=== PATIENT | female | born 1950 | race Caucasian/White ===

== ENCOUNTER → 2017-01-31 | Outpatient (CLI) | payer BC ==
--- NOTE | 2017-01-31 18:38 | EKG ---
Date Performed: 01/31/2017 Time Performed: 12:31:51 PTAGE: 66 years EKG: Sinus rhythm LOW QRS VOLTAGE IN PRECORDIAL LEADS BORDERLINE ECG No significant change from prior electrocardiogra m. NO PREVIOUS TRACING DOCTOR: Ervin Burt Interpretating Date/Time 01/31/2017 18:37:39
== END ==
LOC: HCAV 09:34
PROVIDERS: ATTEND Orthopaedic Surgery Orthopaedic Trauma
DX: Z01.810 Encounter for preprocedural cardiovascular examination (principal)
CPT/HCPCS: 93005

== ENCOUNTER → 2017-09-08 | Outpatient (CLI) | payer BC ==
[~2017-09-08] MED LIST: DIAZ5 PO; DIOV160T3 PO; HYDR-3366 PO; HYDR-3583 PO; HYDR-4204 TOPICAL; HYDR25TA5 PO; LABE100T2 PO; TRAM50TA PO; VITA1000 PO; WALKER/ADULT/FO1 MIS; XARE10TA PO
== END ==
LOC: CPRE 09:49
PROVIDERS: ATTEND Orthopaedic Surgery Orthopaedic Trauma
DX: M79.609 Pain in unspecified limb (principal)

== ENCOUNTER 2017-09-23 05:32 | Inpatient (IN) | payer BC ==
[~2017-09-23] VITALS: Ht 160 cm; Wt 55.2 kg
[2017-09-23] MEDS ORDERED: ceFAZolin 2 GM PREMIX 50 ML IV SCH (06:15)
[2017-09-23] MEDS ORDERED: VANCOMYCIN 1000 MG/NS 250 ML (for <70 kg) IV SCH ×2 (06:15)
[2017-09-23] MEDS ORDERED: FAMOTIDINE 20 MG/2 ML VIAL IV PUSH ONE (06:15)
[2017-09-23] MEDS ORDERED: ACETAMINOPHEN 1000 MG/100 ML 100 ML IV ONE (06:15)
[2017-09-23] MEDS ORDERED: CELECOXIB 200 MG CAP PO ONE (06:15)
[2017-09-23] MEDS ORDERED: GABAPENTIN 300 MG CAP PO ONE (06:15)
[2017-09-23] MEDS ORDERED: SODIUM CHLORID 0.9% 500 ML IV PRN (06:15)
[2017-09-23] MEDS ORDERED: TRANEXAMIC ACID IV SCH (06:15)
[2017-09-23] MEDS ORDERED: METOPROLOL TARTRATE 25 MG TAB PO PRN (06:15)
[2017-09-23] MEDS ORDERED: POVIDONE IODINE 5% (ANTISEPSIS KIT) 4 APPLICATIONS EACH NARE PRN (06:15)
[2017-09-23] MEDS ORDERED: LACTATED RINGER'S 1000 ML IV PRN (06:15)
[2017-09-23] MEDS ORDERED: DEXAMETHASONE SOD PHOS 20 MG/5 ML VIAL IV PUSH ONE (06:15)
[2017-09-23] MEDS ORDERED: BUPIVACAINE-EPI PF 0.25% INJ 20 ML, BUPIVACAINE LIPOSO PF 1.3% INJ 20 ML in SODIUM CHLO... P-ARTICULR SCH (06:15)
[2017-09-23] MEDS ORDERED: GENTAMICIN SULFATE 80 MG/2 ML VIAL ONE (06:15)
[2017-09-23] MEDS ORDERED: CHLORHEXIDINE GLUCONATE 4% SOLN 120 ML BTL TOPICAL SCH (06:15)
[2017-09-23] MEDS ORDERED: SODIUM CHLORIDE 0.9% IV SCH (06:15)
[2017-09-23] MEDS ORDERED: ONDANSETRON HCL 4 MG/2 ML VIAL IV PUSH ONE (06:15)
[2017-09-23] MEDS ORDERED: CHLORHEXIDINE GLUCONATE 2 % 1 PACK (2 CLOTHS) TOPICAL PRN (06:15)
[2017-09-23] MEDS ORDERED: VANCOMYCIN 1 GM/200 ML INJ 200 ML IV ONE (06:26)
[2017-09-23] MEDS ORDERED: ACETAMINOPHEN/HYDROcodone 325 MG/5 MG TAB PO PRN (09:00)
[2017-09-23] MEDS ORDERED: ACETAMINOPHEN/HYDROcodone 325 MG/7.5 MG TAB PO PRN (09:00)
[2017-09-23] MEDS ORDERED: ONDANSETRON HCL 4 MG/2 ML VIAL IVP PRN (09:00)
[2017-09-23] MEDS ORDERED: NALOXONE HCL 0.4 MG/ML AMP IV PUSH PRN (09:00)
[2017-09-23] MEDS ORDERED: Post-op Orders (for Pharmacy) XX ONE (09:00)
--- NOTE | 2017-09-23 09:02 | PD.OP ---
cc: Cosme Longoria MD Operative Report Date of Surgery: September 23, 2017 Preoperative Diagnosis: Severe right hip osteoarthritis Postoperative Diagnosis: Procedure: Right total hip arthroplasty by anterior approach Surgeon: Cosme Longoria Wardrobe Mistress(s): ALAINA Lizaam PA-C The surgical procedure was assisted by my physician housing assistant property manager. My P.A. presence was necessary throughout this case for the manipulation and positioning of the surgical extremity. My P.A. was assisting me throughout the duration of this procedure. The skill set of a physician housing assistant property manager was medically necessary to complete this procedure. During the surgical case the surgical aides teacher was working at the back table and the physician housing assistant property manager was directly assisting me. Operation and Findings: PLAN OF ACTIVITY Weight bear as tolerated. IMPLANTS USED DePuy Corail size 9 collared stem with a size [50] Blue River Gription cup, [50/32 ] Altrx poly liner, and a [32+1] ceramic Biolox ceramic head. DETAILS OF PROCEDURE: This patient has a long history of hip pain. Patient was found to have severe osteoarthritis. The patient had radiographic evidence of joint space narrowing with [id number] arthritis and osteophytes around the acetabulum as well as the femoral head. There was also some cystic changes. The patient failed conservative treatment with pain medications, anti-inflammatories, physical therapy, assistive devices including a cane, as well as therapeutic injection of the hip. Patient's hip arthritis was limiting his ability to ambulate and perform activities of daily living. The patient wished to proceed with surgery and informed consent was obtained. Operative site was marked. I discussed both posterior approach and anterior approach with the patient and decision was made for anterior approach. Patient was brought to OR and placed on OR table. IV sedation and general anesthesia was administered by anesthesiologist. Patient positioned on a Lissa table and was given IV antibiotics. Time-out procedure was performed. The hip and thigh were prepped with alcohol followed by Hibiclens. The thigh was draped in the usual sterile fashion. Clean Air Suite was used for this procedure. The procedure began with a 5-inch incision over the anterolateral thigh. Subcutaneous tissue was dissected with Bovie. The fascia over the tensa fasciae latae was incised. Care was taken to avoid injury to the lateral femoral cutaneous nerve. The tensor muscle was retracted laterally. Sartorius was retracted medially. Retractors were now placed. The reflected head of the rectus is now elevated. A capsulotomy was performed over the anterior head capsule. Sutures were placed to help retract the capsule. At this point the femoral head and neck were identified. With soft tissue protected, oscillating saw was used to make a cut through the femoral neck, the femoral head was now removed. At this point attention was turned to preparation of the acetabulum. The labrum was excised. The acetabulum was sequentially reamed up to size [50]. A Blue River cup was now placed. Fluoroscopy was used to aid in identification of appropriate version. Cup was fully impacted and found to have excellent fit. Hole eliminator was now placed. The liner was now impacted into the cup. At this point the hip was externally rotated. A hook was placed around the proximal femur. The capsule was released off the lateral and medial femur. The hip was now extended and adducted. Retractors were placed around the proximal femur to allow for exposure. A box osteotome was used to remove the lateral cortex of the femoral neck. A broach was used to help lateralize the prosthesis. Canal finder was used to create a path down the canal. Next, the canal was sequentially broached up to size [9]. This was found to be an excellent fit. Calcar planer was placed. A standard head was placed, and the hip was reduced. The hip was found to have excellent stability with good range of motion. The leg lengths were measured under fluoroscopy and found to be equal compared to preoperatively. Trial broach was removed. The Corail stem was opened. Stem was fully impacted into the proximal femur in appropriate version. The femoral head was placed. The hip was again reduced. Fluoroscopy confirmed excellent alignment of prosthesis. The wound was thoroughly irrigated and capsule was closed with #1 Vicryl. The fascia over the tensor fasciae muscle was closed with #1 Vicryl, subcutaneous tissue was closed with 3-0 Vicryl and the skin was closed with jalil and Dermabond skin closure. The capsule layers, muscle, and subcutaneous tissue were injected with a mixture of saline and bupivicaine. Dressings were applied. The patient was transferred to Recovery Room in stable condition. Cosme Longoria MD September 23, 2017 09:02
[2017-09-23] MEDS ORDERED: DIAZEPAM 5 MG TAB PO PRN (09:15)
--- NOTE | 2017-09-23 09:16 | RADRPT ---
EXAM DATE/TIME: 09/23/2017 06:27 [facility] COMPARISON: No previous studies available for comparison. INDICATIONS : Right total hip arthroplasty. MEDICAL HISTORY : Unobtainable. SURGICAL HISTORY : Unobtainable. ENCOUNTER: Initial ACUITY: 1 day PAIN SCORE: Non-responsive. LOCATION: Right hip FINDINGS: A two view examination of the right hip was performed. Right total hip arthroplasty. Femoral and acet abular components are appropriately positioned. No fracture. CONCLUSION: Appropriate postoperative appearance of the right hip status post total arthroplasty Geoff Lockhart MD on September 23, 2017 at 9:13 Board Certified Radiologist. This report was verified electronically.
[2017-09-23] MEDS ORDERED: *MEPERIDINE 25 MG INJ VIAL PERIprocedural Use ONLY ONE (09:29)
[2017-09-23] MEDS ORDERED: MIDAZOLAM HCL 2 MG/2 ML VIAL ONE (09:30)
[2017-09-23] MEDS ORDERED: TRANEXAMIC ACID INJ 1,000 MG in SODIUM CHLORIDE 0.9% INJ 100 ML IV ONE (09:30)
[2017-09-23] MEDS ORDERED: *morphine SULFATE 8 MG/ML PERIprocedure ONLY ONE ×2 (09:37→09:47)
[2017-09-23] MEDS ORDERED: DO NOT ADM ANY ANTICOAGULANT DRUGS PRN (10:00)
--- NOTE | 2017-09-23 10:41 | RADRPT ---
EXAM DATE/TIME: 09/23/2017 10:39 [facility] COMPARISON: No previous studies available for comparison. INDICATIONS : Post op right hip surgery. MEDICAL HISTORY : None. SURGICAL HISTORY : None. ENCOUNTER: Initial ACUITY: 1 day PAIN SCORE: 0/10 LOCATION: Right Hip and pelvis. FINDINGS: A lateral view of the right hip with AP pelvis was obtained. Bilateral total hip arthroplasties. On t he right, regional air suggesting recent intervention. Femoral and acetabular components are all appr opriately positioned without fracture or dislocation. CONCLUSION: Bilateral total hip arthroplasties are radiographically intact without dislocation or fracture. Geoff Lockhart MD on September 23, 2017 at 10:38 Board Certified Radiologist. This report was verified electronically.
[2017-09-23 10:44] VITALS: BP 172/79; PULSE 86; RESP 18; TEMP 97.7; O2SAT 100
[2017-09-23] MEDS: KETOROLAC TROMETHAMINE 30 MG/ML (IVP) VIAL IV PUSH SCH ×2 (10:59→23:53)
[2017-09-23] MEDS: LACTATED RINGER'S 1000 ML INJ 1,000 ML IV SCH (11:21)
[2017-09-23] MEDS: ACETAMINOPHEN/HYDROcodone 325 MG/10 MG TAB PO PRN ×3 (11:44→18:44)
[2017-09-23] MEDS: MORPHINE SULFATE 4 MG/ML INJ IV PUSH PRN ×2 (13:00→20:58)
[2017-09-23] MEDS: CEFAZOLIN INJ 2,000 MG in SODIUM CHLORIDE 0.9% INJ 100 ML IV SCH ×2 (15:10→20:58)
[2017-09-23] MEDS ORDERED: ENALAPRILAT 1.25 MG/ML VIAL IV PUSH PRN (15:30)
--- NOTE | 2017-09-23 15:32 | PD.CONS ---
HPI Service [facility] Hospitalists Consult Requested By Dr. Singh Reason for Consult Management of hypertension Primary Care Physician Diagnoses: (1) Osteoarthritis (2) Hypertension History of Present Illness The patient is a 66-year-old female seen following right total hip arthroplasty. Hospitalist consultation was requested for management of hypertension. Patient denies any other chronic medical problems. States that her blood pressures usually well controlled. She denies chest pain or dyspnea. Pain is well controlled at this time. Review of Systems Constitutional: DENIES: Fever, Chills, Night Sweats Eyes: DENIES: Blurred vision, Vision loss Ears, nose, mouth, throat: DENIES: Hearing loss Respiratory: DENIES: Cough, Wheezing, Sputum production, Shortness of breath Cardiovascular: DENIES: Chest pain, Palpitations, Dyspnea on Exertion, Lower Extremity Edema Gastrointestinal: DENIES: Abdominal pain, Constipation, Diarrhea, Nausea, Vomiting Genitourinary: DENIES: Urinary frequency, Urinary incontinence, Urgency, Hematuria, Dysuria, Nocturia Musculoskeletal: COMPLAINS OF: Joint pain, DENIES: Muscle aches Integumentary: DENIES: Pruritus, Rash Hematologic/lymphatic: DENIES: Bruising Neurologic: DENIES: Headache Past Family Social History Allergies: Coded Allergies: No Known Allergies (Unverified Allergy, 09/23/17) Past Medical History Hypertension Past Surgical History Left total hip arthroplasty 2016 Reported Medications Labetalol 100 mg twice daily Diovan HCT 160/12.5 daily [place] 10/325 as needed Tramadol as needed Valium 5 mg 3 times daily as needed HCTZ 25 mg daily Hydrocortisone cream as needed Vitamin D Family History Insulin-dependent diabetes Social History Denies alcohol, tobacco, or illicit drug use. Physical Exam Vital Signs Vital Signs Date Time Temp Pulse Resp B/P (MAP) Pulse Ox O2 Delivery O2 Flow Rate FiO2 09/23/17 10:44 97.7 86 18 172/79 (110) 100 09/23/17 10:20 16 09/23/17 10:15 97.8 78 16 150/71 (97) 98 Nasal Cannula 2 09/23/17 10:00 79 16 153/72 (99) 97 Nasal Cannula 2 09/23/17 09:52 15 09/23/17 09:45 85 16 156/70 (98) 96 Nasal Cannula 2 09/23/17 09:42 15 09/23/17 09:30 88 15 157/70 (99) 100 Nasal Cannula 3 09/23/17 09:25 98.1 90 15 159/75 (103) 100 Nasal Cannula 4 09/23/17 06:26 98.3 88 20 193/87 (122) 98 Physical Exam GENERAL: Well-nourished, well-developed female in no acute distress. Sitting up in a chair. HEENT: Normocephalic, atraumatic. Pupils equal, round and reactive. Extraocular movements intact. No scleral icterus. No injection or drainage. Oropharynx is clear. Mucous membranes are moist. CARDIOVASCULAR: Regular rate and rhythm without murmurs, gallops, or rubs. RESPIRATORY: Clear to auscultation. No wheezes, rales, or rhonchi. Breathing is non-labored. GASTROINTESTINAL: Abdomen soft, non-tender, nondistended. EXTREMITIES: No lower extremity edema. No calf tenderness. SCDs. PSYCH: Alert and oriented x 3. Imaging Last Impressions Hip and Pelvis X-Ray 09/23/17 0858 Signed Impressions: Service Date/Time: Saturday, September 23, 2017 10:39 - CONCLUSION: Bilateral total hip arthroplasties are radiographically intact without dislocation or fracture. Geoff Lockhart MD Hip X-Ray 09/23/17 0000 Signed Impressions: Service Date/Time: Saturday, September 23, 2017 06:27 - CONCLUSION: Appropriate postoperative appearance of the right hip status post total arthroplasty Geoff Lockhart MD Assessment and Plan Assessment and Plan 1. Osteoarthritis, right hip: Status post right total hip arthroplasty. Management per orthopedic surgery. Continue pain control, physical therapy, bowel regimen. 2. Hypertension: Blood pressure has been elevated, likely secondary to pain. Continue pain control. Continue ARB, HCTZ, labetalol. Vasotec as needed. 3. DVT prophylaxis: Xarelto. Andre Reyes MD September 23, 2017 15:32
[2017-09-23 16:15] VITALS: BP 151/75; PULSE 99; RESP 18; TEMP 97.9; O2SAT 100
[2017-09-23] MEDS: ACETAMINOPHEN 1000 MG/100 ML 100 ML IV SCH (17:43)
[2017-09-23] MEDS: VANCOMYCIN INJ 1,000 MG in SODIUM CHLOR 0.9% 250 ML INJ 250 ML IV SCH (18:23)
[2017-09-23 20:00] VITALS: BP 167/77; PULSE 103; RESP 18; TEMP 98; O2SAT 97
[2017-09-23] MEDS: ASPIRIN 81 MG CHEW TAB CHEW SCH (20:50)
[2017-09-23] MEDS: CELECOXIB 200 MG CAP PO SCH (20:50)
[2017-09-23] MEDS: LABETALOL HCL 100 MG TAB PO SCH (20:50)
[2017-09-24] VITALS: BP 108/52; PULSE 93; RESP 18; TEMP 98.2; O2SAT 99
[2017-09-24] MEDS: CEFAZOLIN INJ 2,000 MG in SODIUM CHLORIDE 0.9% INJ 100 ML IV SCH (01:47)
[2017-09-24] MEDS: ACETAMINOPHEN/HYDROcodone 325 MG/10 MG TAB PO PRN ×3 (01:52→11:05)
[2017-09-24] MEDS: LACTATED RINGER'S 1000 ML INJ 1,000 ML IV SCH ×2 (01:53→12:00)
[2017-09-24] MEDS: MORPHINE SULFATE 4 MG/ML INJ IV PUSH PRN (03:51)
[2017-09-24 04:00] VITALS: BP 151/73; PULSE 100; RESP 18; TEMP 98.4; O2SAT 99
[2017-09-24] MEDS: VANCOMYCIN INJ 1,000 MG in SODIUM CHLOR 0.9% 250 ML INJ 250 ML IV SCH (06:07)
--- NOTE | 2017-09-24 06:35 | PD.ORT.PN ---
Subjective Subjective Remarks POD 1 s/p Right Anterior LUIS doing well. out of bed yesterday with walker. pain controlled. states feels ready to go home today Objective Vitals Vital Signs Date Time Temp Pulse Resp B/P (MAP) Pulse Ox O2 Delivery O2 Flow Rate FiO2 09/24/17 04:00 98.4 100 18 151/73 (99) 99 09/24/17 03:56 18 09/24/17 00:00 98.2 93 18 108/52 (70) 99 09/23/17 20:00 98.0 103 18 167/77 (107) 97 09/23/17 16:15 97.9 99 18 151/75 (100) 100 09/23/17 10:44 97.7 86 18 172/79 (110) 100 09/23/17 10:20 16 09/23/17 10:15 97.8 78 16 150/71 (97) 98 Nasal Cannula 2 09/23/17 10:00 79 16 153/72 (99) 97 Nasal Cannula 2 09/23/17 09:52 15 09/23/17 09:45 85 16 156/70 (98) 96 Nasal Cannula 2 09/23/17 09:42 15 09/23/17 09:30 88 15 157/70 (99) 100 Nasal Cannula 3 09/23/17 09:25 98.1 90 15 159/75 (103) 100 Nasal Cannula 4 I/O 09/23/17 09/23/17 09/23/17 09/24/17 09/24/17 09/24/17 07:00 15:00 23:00 07:00 15:00 23:00 Intake Total 3110 ml 940 ml 240 ml Output Total 200 ml Balance 2910 ml 940 ml 240 ml Intake Oral 720 ml 240 ml IV Total 110 ml 220 ml Other 3000 ml Output Estimated Blood Loss 200 ml # Voids 1 4 3 # Bowel Movements 0 0 Imaging Last 24 hours Impressions Hip and Pelvis X-Ray 09/23/17 0858 Signed Impressions: Service Date/Time: Saturday, September 23, 2017 10:39 - CONCLUSION: Bilateral total hip arthroplasties are radiographically intact without dislocation or fracture. Geoff Lockhart MD Objective Remarks RLE: dressings clean and dry. itnact. NVI Assessment & Plan Assessment and Plan 1) Right anterior LUIS - POD 1 -WBAT -maintain dressing x 6 days -DVT prophylaxis -scripts written from outpatient -DC home today with C -f/u with Francisco or PA in 2 weeks Nando Vargas/Aquatics Lifeguard PA September 24, 2017 06:35
--- NOTE | 2017-09-24 06:48 | HHI.DS ---
Discharge Summary Admission Date September 23, 2017 at 05:32 Discharge Date: September 24, 2017 Admitting Diagnosis Right hip osteoarthritis Diagnosis: (1) Status post total hip replacement, left Diagnosis: Principal ICD Codes: Z96.642 - Presence of left artificial hip joint Procedures Right anterior total hip arthroplasty PE at Discharge RLE: dressings clean and dry. itnact. DEI Hospital Course Patient admitted for outpatient basis for elective right total hip arthroplasty. She has a long-term history of right hip osteoarthritis. She has a history of a left total hip arthroplasty. Conservative measures for management of the right hip arthritis were exhausted which include activity modification, anti-inflammatory therapy, and steroid injections. Decision was made to move forward with elective right total hip arthroplasty. She tolerated the procedure well. She was admitted to [facility]. She was out of bed on postop day 0 and ambulate with a walker with minimal discomfort. By postop day 1, she was hemodynamically stable, pain was well controlled, she was ambulatory with therapy and fit for discharge home with home health care. She will maintain her dressing on her right hip for 6 days and will initiate dressing changes on postop day 7. She will continue to fully weight-bear. She will follow-up in the office with Dr. Singh or his PA in 2 weeks Pt Condition on Discharge: Good Discharge Disposition: Disch w/ Home Health Serv Discharge Instructions Diet Instructions: As Tolerated, No Restrictions Activities You Can Perform: Weight Bearing as Branden Follow up Referrals: Orthopedics - 2 Weeks @ [facility] with Cosme Singh MD Continued Medications: Diazepam (Valium) 5 Mg Tab 5 MG PO TID PRN for INSOMNIA, TAB 0 Refills Hydrochlorothiazide (Hydrochlorothiazide) 25 Mg Tab 25 MG PO DAILY, #30 TAB 0 Refills Hydrocodone-Acetaminophen (Hydrocodone-Acetaminophen) 10-325 mg Tab 1 TAB PO DAILY PRN for PAIN, TAB 0 Refills Hydrocortisone (Topical) (Ala-Gutierrez Topical) 2.5% Cream 1 APPLIC TOPICAL DIRECTED for Inflammation, #1 TUBE 0 Refills Labetalol (Labetalol) 100 Mg Tab 100 MG PO BID for Blood Pressure Management, TAB 0 Refills Valsartan-Hydrochlorothiazide (Diovan Hct) 160-12.5 Mg Tab 1 TAB PO DAILY for Blood Pressure Management, #30 TAB 0 Refills Discontinued Medications: Tramadol (Tramadol) 50 Mg Tab 50 MG PO Q4H PRN for PAIN, TAB 0 Refills Nando Vargas/First Koko MENDEZ September 24, 2017 06:48
[2017-09-24 07:57] LABS: AUTOMATED NEUTROPHIL # 4.9 TH/MM3 (1.8-7.7); BASOPHIL % 0.1 % (0.0-2.0); EOSINOPHIL % 0.4 % (0.0-4.0); HEMATOCRIT 26.8 % (35.0-46.0); HEMOGLOBIN 9.3 GM/DL (11.6-15.3); LYMPH % 15.9 % (9.0-44.0); LYMPHOCYTE # 1.1 TH/MM3 (1.0-4.8); MEAN CELL VOLUME 90.2 FL (80.0-100.0); MEAN CORPUSCULAR HEMOGLOBIN 31.3 PG (27.0-34.0); MEAN CORPUSCULAR HGB CONC 34.7 % (32.0-36.0); MEAN PLATELET VOLUME 7.4 FL (7.0-11.0); MONO % 12.9 % (0.0-8.0); MONOCYTE # 0.9 TH/MM3 (0-0.9); NEUT % 70.7 % (16.0-70.0); PLATELET COUNT 255 TH/MM3 (150-450); RED BLOOD COUNT 2.97 MIL/MM3 (4.00-5.30); RED CELL DISTRIBUTION WIDTH 14.4 % (11.6-17.2); WHITE BLOOD COUNT 6.9 TH/MM3 (4.0-11.0)
[2017-09-24 08:00] VITALS: BP 194/84; PULSE 91; RESP 20; TEMP 98.1; O2SAT 97
[2017-09-24] MEDS: LABETALOL HCL 100 MG TAB PO SCH (08:01)
[2017-09-24] MEDS: CELECOXIB 200 MG CAP PO SCH (08:01)
[2017-09-24] MEDS: ASPIRIN 81 MG CHEW TAB CHEW SCH (08:02)
[2017-09-24] MEDS: ACETAMINOPHEN 1000 MG/100 ML 100 ML IV SCH (08:03)
[2017-09-24 08:16] LABS: BICARBONATE 29.6 MEQ/L (21.0-32.0); CALCIUM 7.9 MG/DL (8.5-10.1); CREATININE 0.78 MG/DL (0.50-1.00)
[2017-09-24] MEDS ORDERED: VALSARTAN 160 MG TAB PO SCH (09:00)
[2017-09-24] MEDS ORDERED: HYDROCHLOROTHIAZIDE 12.5 MG CAP PO SCH (09:00)
[2017-09-24] MEDS ORDERED: HYDROCHLOROTHIAZIDE 25 MG TAB PO SCH (09:00)
--- NOTE | 2017-09-24 09:31 | HHI.FF ---
Face to Face Verification Diagnosis: (1) Status post total replacement of right hip Physical Therapy Gait training Hip: Total hip, Protocol: Right, Progress to weight bearing Right LE Weight Bearing: WB as tolerated Nursing Dressing Changes: Daily dressing change, Coverderm/Primapore (begin dressing changes on POD 7. surgical mesh on incision not to be removed. only change optifoam to primapore) I have seen patient So Linton on 09/24/17. My clinical findings support the need for the requested home health care services because: Ltd mobility - disease progression I certify that my clinical findings support that this patient is homebound because: Post-op weakness Nando Vargas/Staff Research Scientist PA September 24, 2017 09:31
--- NOTE | 2017-09-24 09:35 | HHI.PR ---
Subjective Remarks Follow up for R LUIS, HTN. The patient reports her blood pressure was elevated this morning, into the 190s. She states she was in a lot of pain at the time, now received pain medication and her blood pressure medications. She denies any fevers/chills, headache, lightheadedness, dizziness, chest pain, shortness of breath, or abdominal complaints. She is hoping to go home today. Objective Vitals Vital Signs Date Time Temp Pulse Resp B/P (MAP) Pulse Ox O2 Delivery O2 Flow Rate FiO2 09/24/17 09:16 17 09/24/17 09:14 17 09/24/17 04:00 98.4 100 18 151/73 (99) 99 09/24/17 03:56 18 09/24/17 00:00 98.2 93 18 108/52 (70) 99 09/23/17 20:00 98.0 103 18 167/77 (107) 97 09/23/17 16:15 97.9 99 18 151/75 (100) 100 09/23/17 10:44 97.7 86 18 172/79 (110) 100 09/23/17 10:20 16 09/23/17 10:15 97.8 78 16 150/71 (97) 98 Nasal Cannula 2 09/23/17 10:00 79 16 153/72 (99) 97 Nasal Cannula 2 09/23/17 09:52 15 09/23/17 09:45 85 16 156/70 (98) 96 Nasal Cannula 2 09/23/17 09:42 15 I/O 09/23/17 09/23/17 09/23/17 09/24/17 09/24/17 09/24/17 07:00 15:00 23:00 07:00 15:00 23:00 Intake Total 3110 ml 940 ml 1360 ml 250 ml Output Total 200 ml Balance 2910 ml 940 ml 1360 ml 250 ml Intake Oral 720 ml 240 ml IV Total 110 ml 220 ml 1120 ml 250 ml Other 3000 ml Output Estimated Blood Loss 200 ml # Voids 1 4 3 # Bowel Movements 0 0 Result Diagram: 09/24/17 0609 09/24/17 0609 Imaging Last Impressions Hip and Pelvis X-Ray 09/23/17 0858 Signed Impressions: Service Date/Time: Saturday, September 23, 2017 10:39 - CONCLUSION: Bilateral total hip arthroplasties are radiographically intact without dislocation or fracture. Geoff Lockhart MD Hip X-Ray 09/23/17 0000 Signed Impressions: Service Date/Time: Saturday, September 23, 2017 06:27 - CONCLUSION: Appropriate postoperative appearance of the right hip status post total arthroplasty Geoff Lockhart MD Objective Remarks GENERAL: Well-nourished, well-developed pleasant female patient in NAD. SKIN: Warm and dry. No rash. HEENT: Normocephalic. Atraumatic. Pupils equal and round. Mucous membranes pink and moist. CARDIOVASCULAR: Regular rate and rhythm. No murmur appreciated. RESPIRATORY: No accessory muscle use. Clear to auscultation. Breath sounds equal bilaterally. GASTROINTESTINAL: Abdomen soft, non-tender, nondistended. Normoactive bowel sounds x4. MUSCULOSKELETAL: No obvious deformities. Extremities without clubbing, cyanosis , or edema. Right hip surgical dressing, CDI. NEUROLOGICAL: Awake and alert. No obvious cranial nerve deficits. Motor grossly within normal limits. Moving all extremities spontaneously. Normal speech. PSYCHIATRIC: Appropriate mood and affect; insight and judgment normal. Procedures 09/23/17 - right total hip arthroplasty by anterior approach by Dr. Longoria Medications and IVs Current Medications Medications (Trade) Dose Ordered Sig/Laura Route Start Time Stop Time Status Last Admin Lactated Ringer's 1,000 ml @ 30 mls/hr Q24H PRN IV 09/23/17 06:15 09/26/17 06:14 09/23/17 06:30 Sodium Chloride 500 ml @ 30 mls/hr [id number] PRN IV 09/23/17 06:15 09/26/17 06:14 (Lopressor) 25 mg MEDICAL BILLING CLERK PRN PO 09/23/17 06:15 09/26/17 06:14 (Betadine 5% Antisepsis Kit) 1 applic MEDICAL BILLING CLERK PRN EACH NARE 09/23/17 06:15 09/26/17 06:14 09/23/17 06:30 (Chlorhexidine 2% Cloth) 3 pack MEDICAL BILLING CLERK PRN TOPICAL 09/23/17 06:15 09/26/17 06:14 09/23/17 06:30 (Hibiclens 4% Top Soln) 1 applic ONCE TOPICAL 09/23/17 06:15 09/26/17 06:14 09/23/17 06:53 Vancomycin HCl 1000 mg/Sodium Chloride 250 ml @ 250 mls/hr MEDICAL BILLING CLERK IV 09/23/17 06:15 09/26/17 06:14 09/23/17 06:45 ([place]port 5-325 Mg) 1 tab Q3H PRN PO 09/23/17 09:00 ([place] 7.5-325 Mg) 1 tab Q3H PRN PO 09/23/17 09:00 ([place] 10-325 Mg) 1 tab Q3H PRN PO 09/23/17 09:00 09/24/17 08:00 (Zofran Inj) 4 mg Q6H PRN IVP 09/23/17 09:00 (Colace) 100 mg BID PO 09/24/17 21:00 (Narcan Inj) 0.4 mg UNSCH PRN IV PUSH 09/23/17 09:00 Lactated Ringer's 1,000 ml @ 80 mls/hr [id number] IV 09/23/17 11:00 09/24/17 01:53 (Morphine Inj) 3 mg Q3H PRN IV PUSH 09/23/17 09:00 09/24/17 03:51 (Aspirin Chew) 81 mg BID CHEW 09/23/17 09:00 09/24/17 08:02 (CeleBREX) 200 mg BID PO 09/23/17 21:00 09/24/17 08:01 Acetaminophen 100 ml @ 400 mls/hr Q12H IV 09/23/17 18:00 09/25/17 06:14 09/24/17 08:03 (Valium) 5 mg TID PRN PO 09/23/17 09:15 (Hydrodiuril) 25 mg DAILY PO 09/24/17 09:00 09/24/17 08:01 (Trandate) 100 mg BID PO 09/23/17 21:00 09/24/17 08:01 (Diovan) 160 mg DAILY PO 09/24/17 09:00 09/24/17 08:01 (Microzide) 12.5 mg DAILY PO 09/24/17 09:00 09/24/17 08:02 (Vasotec Inj) 1.25 mg Q6H PRN IV PUSH 09/23/17 15:30 A/P Problem List: (1) Osteoarthritis ICD Code: M19.90 - Unspecified osteoarthritis, unspecified site (2) Hypertension ICD Code: I10 - Essential (primary) hypertension Assessment and Plan 66-year-old female with history of hypertension admitted to [facility] for right total hip arthroplasty by Dr. Longoria. Hospitalist consulted for management of hypertension. Osteoarthritis s/p Right Total Hip Arthroplasty: done by Dr. Longoria on 09/23. -Continue pain control with Davenport prn -DVT prophylaxis per ortho -Continue PT, WBAT -Plan to d/c with [facility] Hypertension: BP 194/84 this morning, previously well controlled. Patient reports she was in pain at the time. -Continue patient's home antihypertensives including labetalol 100mg bid diovan 160-12.5mg -Control pain as above -Continue to monitor blood pressure Anemia: Hgb 9.3 s/p surgery -stable, no need for transfusion at this time -monitor DVT Prophylaxis: per ortho Nathalie Marie PA-C September 24, 2017 9:35 am
[2017-09-24 12:00] VITALS: BP 149/67; PULSE 88; RESP 20; TEMP 98.2; O2SAT 100
[2017-09-24 12:28] VITALS: RESP 17
[2017-09-24] MEDS ORDERED: DOCUSATE SODIUM 100 MG CAP PO SCH (21:00)
== END 2017-09-24 14:45 | disposition home or self-care (01) | DRG 470 ==
LOC: HSDI 05:32 → N06B 10:38
PROVIDERS: ADMIT Orthopaedic Surgery Orthopaedic Trauma; ATTEND Orthopaedic Surgery Orthopaedic Trauma
PROC: 0SR904A Replacement of Right Hip Joint with Ceramic on Polyethylene Synthetic Substitute, Uncemented, Open Approach (ICD-10-PCS; principal; 2017-09-23 06:55)
DX: M16.11 Unilateral primary osteoarthritis, right hip (principal); Z96.642 Presence of left artificial hip joint; I10 Essential (primary) hypertension; D64.9 Anemia, unspecified
CPT/HCPCS: 73501; 73502; 76000; 80048; 85025; 86850; 86900; 86901; C1776; C9290; J0131; J0690; J1100; J1580; J1885; J2175; J2250; J2270; J2405; J3010; J3370; J7050; J7120